=== PATIENT | female | born 1995 | race Two or more races ===

== ENCOUNTER 2017-06-20 14:55 | Emergency (ER) | payer OTHER ==
[~2017-06-20] VITALS: Ht 152.4 cm; Wt 48.5 kg
[2017-06-20 14:55] VITALS: BP 112/77
== END 2017-06-20 17:16 | disposition home or self-care (01) ==
LOC: ER 15:02
DX: M25.561 Pain in right knee (principal); M25.562 Pain in left knee; Z85.89 Personal history of malignant neoplasm of other organs and systems
CPT/HCPCS: 73564-TC; A4606; Z7610